=== PATIENT | female | born 1970 | race Caucasian/White ===

== ENCOUNTER 2016-06-07 13:06 | Emergency (ER) | payer MEDICAID ==
[~2016-06-07] VITALS: Ht 160 cm; Wt 59.0 kg
[2016-06-07 13:19] VITALS: BP 121/75
--- NOTE | 2016-06-07 13:26 | NUR ---
Patient ambulated to bed 3. RN evaluating patient at bedside.
--- NOTE | 2016-06-07 13:26 | NUR ---
45F BIB FAMILY C/O WOUND CHECK TO LEFT AXILLA X 2 DAYS; SWELLING NOTED TO SITE; PT C/O THROBBING PAIN TO LEFT AXILLA, RADIATES TO LEFT BACK X 2 DAYS; PT STATES HAD BIOPSY TO LEFT AXILLA 10 DAYS AGO AT [facility] AND DX W/ LEFT BREAST CANCER. PT STATES NAUSEA, BUT DENIES VOMITING/DIARRHEA AT THIS TIME; ABDOMEN SOFT, NON-TENDER, ACTIVE BOWEL SOUNDS X 4 QUADRANTS. A&OX4, BL LUNG SOUNDS CLEAR, RR EVEN/UNLABORED, SKIN IS WARM/DRY AT THIS TIME; STEADY GAIT; PT RESTINGING IN BED W/ HOB ELEVATED AND IN LOWEST POSITION. POSITIONED FOR COMFORT; ER MD MADE AWARE OF STATUS. WILL CONTINUE TO MONITOR.
--- NOTE | 2016-06-07 13:29 | NUR ---
ER MD DR. BAZAN EVALUATING PT AT BEDSIDE.
[2016-06-07] MEDS ORDERED: AMPICILLIN/SULBACTAM 3 GM in NACL 0.9% 100 ML IV ONE (13:35)
[2016-06-07] MEDS ORDERED: AMPICILLIN/SULBACTAM 3 GM VIAL ONE (13:40)
[2016-06-07 13:44] VITALS: BP 121/75
--- NOTE | 2016-06-07 13:44 | NUR ---
Patient does not wish to proceed with medical care recommended by DR. BAZAN. Patient given information related to possible complications, up to and including , which could occur as a result of leaving hospital at this time. Patient verbalizes understanding of risks involved leaving against medical advice. Patient has signed AMA form.
== END 2016-06-07 13:44 | disposition left against medical advice (07) ==
LOC: MED 13:06
DX: Z04.8 Encounter for examination and observation for other specified reasons (principal); C50.912 Malignant neoplasm of unspecified site of left female breast; E11.9 Type 2 diabetes mellitus without complications